=== PATIENT | female | born 1950 | race Caucasian/White ===

== ENCOUNTER → 2017-11-11 12:06 | Outpatient (CLI) | payer MEDICARE, OTHER ==
[~2017-11-11 12:06] MED LIST: CARDURA4 MG PO; CYMBALTA30 MG; HYZAAR 100-25 T1 TAB PO; MEPERIDINE HCL50 MG PO; MOBIC7.5 MG PO; PRAVACHOL40 MG PO
[2018-01-12 06:45] VITALS: BMI 34.4
== END | disposition home or self-care (01) ==
LOC: D.MRI 12:06
DX: M05.711 Rheumatoid arthritis with rheumatoid factor of right shoulder without organ or systems involvement (principal)

== ENCOUNTER 2018-01-12 06:30 | Day surgery (SDC) | payer MEDICARE, OTHER ==
[2018-01-11 09:51] LABS: HEMATOCRIT 37.3 % (36.0-48.0); HEMOGLOBIN 12.6 g/dL (12-16); MCH 30.6 pg (26.0-34.0); MCHC 33.8 g/dL (31.0-37.0); MCV 90.5 fL (80.0-100.0); MEAN PLATELET VOLUME 8.9 fL (7.4-10.4); RBC 4.12 10x6/uL (4.00-5.40); RDW 13.2 % (11.5-14.5); WBC 5.8 10x3/uL (4.8-10.8)
[~2018-01-12] VITALS: Ht 162.6 cm; Wt 90.7 kg
--- NOTE | ~2018-01-12 | OP ---
PATIENT NAME: POOJA ARRIAZA MEDICAL RECORD: [id number] :46 LOCATION:D.OPS ADMISSION DATE: SURGEON: TED CORDOVA, ORQUIDEA REEVES DATE OF OPERATION: 01/12/2018 PREOPERATIVE DIAGNOSES: 1. Impingement syndrome of the right shoulder. 2. Rotator cuff tear of the right shoulder. POSTOPERATIVE DIAGNOSES: 1. Impingement syndrome of the right shoulder. 2. Rotator cuff tear of the right shoulder. PROCEDURES: 1. Arthroscopic rotator cuff repair of the right shoulder. 2. Arthroscopic distal clavicle excision done through separate incision - 1 cm. 3. Arthroscopic subacromial decompression, acromioplasty and bursectomy. SURGEON: Orquidea Jean MD ANESTHESIA: General. INTRAOPERATIVE COMPLICATIONS: None. SUMMARY OF PATHOLOGIC FINDINGS: Consistent with the patient's MRI, she had severe impingement with lateral attritional change of the rotator cuff where it became full thickness and very thin. IMPLANTS USED: Arthrex 4.75 SwiveLock. OPERATIVE SUMMARY IN DETAIL: After obtaining the appropriate preoperative orthopedic surgery consent as well as anesthetic consultation, evaluation and clearance, the patient was brought to the operating room and placed on the operating table in supine position. After general laryngeal mask airway was administered, the patient was placed in the left lateral decubitus position. All pressure points were well padded to include down leg peroneal pad as well as axillary roll. The patient was held firmly to the operating table using vacuum pack suction system. Right upper extremity and shoulder were then prepped and draped in routine sterile fashion. The arm was held in the Arthrex traction boom at 30 degrees of forward flexion, 30 degrees of abduction with 10 pounds of traction laterally. Arthroscopy was established in the glenohumeral joint from the posterior portal. Anterior portal was established in the anterior safe interval. Diagnostic arthroscopy did reveal the patient had some mild glenohumeral arthritis, one small area centrally was grade IV on the glenoid, however, the humeral head itself was in relatively good condition. No labral tearing was seen. Intra-articular inflammation was noted and at the anterior lateral aspect of the rotator cuff, a full-thickness rotator cuff tear was known. Attention was then turned to the subacromial space. While in subacromial space, accessory lateral portal was created through which an Dixon tissue ablation system was used to denude the undersurface of the acromion of all soft tissue elements and released coracoacromial ligament. A 5.0 barrel bur was then used to perform acromioplasty at the level of acromioclavicular joint. Having completed this, attention was turned to the distal clavicle. Under direct arthroscopic visualization, the distal clavicle OPERATIVE REPORT [id number] POOJA ARRIAZA was taken down with a 5.0 barrel bur for approximately 1 cm. Lastly, the rotator cuff was approached. The 5.0 resector was utilized to denude the bone and take it back to good bleeding footprint for rotator cuff reapproximation. FiberTape was then placed in inverted mattress fashion. It was anchored laterally with a 4.75 SwiveLock from Arthrex. This resulted in good reapproximation and coverage of the greater tuberosity. Having completed this, arthroscopy portals were closed in routine interrupted fashion using 4-0 Prolene. Sterile dressings were applied. The patient was awakened and taken to recovery room in stable condition. All final needle and sponge counts were correct. TRANSINT:[id number] Voice Confirmation ID: [id number] DOCUMENT ID: [id number] TED CORDOVA, ORQUIDEA REEVES at 1119 CC: [id number] DICTATION DATE: 01/12/18899 LOADER: 01/12/18918 [facility] 01/12/[address] [address]
[~2018-01-12 06:30] MED LIST changes: -MEPERIDINE HCL50 MG PO
[2018-01-12 06:45] VITALS: BP 151/66; Ht 162.6 cm; Wt 90.7 kg
[2018-01-12] MEDS ORDERED: MEPERIDINE HCL50 MG PO (08:57)
== END 2018-01-12 11:11 | disposition home or self-care (01) ==
LOC: D.OPS 06:30 → D.PAN 08:30 → D.OPS 08:30
PROVIDERS: Anesthesiology
DX: M25.811 Other specified joint disorders, right shoulder (principal); S43.421A Sprain of right rotator cuff capsule, initial encounter; X58.XXXA Exposure to other specified factors, initial encounter

== ENCOUNTER → 2018-09-20 11:05 | Outpatient (CLI) | payer MEDICARE, OTHER ==
[~2018-09-20 11:05] MED LIST changes: -CYMBALTA30 MG; +CYMBALTA30 MG PO; +HYDROCODON-ACE1 EA10 PO; -HYZAAR 100-25 T1 TAB PO; +HYZAAR PO; +MEPERIDINE HCL50 MG PO
== END | disposition home or self-care (01) ==
LOC: D.MRI 11:05
DX: M25.511 Pain in right shoulder (principal)

== ENCOUNTER 2018-09-28 08:00 | Day surgery (SDC) | payer MEDICARE, OTHER ==
[2018-09-26 13:28] LABS: HEMATOCRIT 38.6 % (36.0-48.0); HEMOGLOBIN 13.4 g/dL (12-16); MCH 30.5 pg (26.0-34.0); MCHC 34.7 g/dL (31.0-37.0); MCV 87.9 fL (80.0-100.0); MEAN PLATELET VOLUME 8.8 fL (7.4-10.4); RBC 4.39 10x6/uL (4.00-5.40); RDW 12.9 % (11.5-14.5); WBC 6.6 10x3/uL (4.8-10.8)
[~2018-09-28] VITALS: Ht 162.6 cm; Wt 90.7 kg
[~2018-09-28 08:00] MED LIST changes: -HYDROCODON-ACE1 EA10 PO
[2018-09-28 09:03] VITALS: BP 123/76; Ht 162.6 cm; Wt 90.7 kg
[2018-09-28] MEDS ORDERED: HYDROCODON-ACE1 EA10 PO (11:32)
--- NOTE | 2018-10-04 12:10 | OP ---
PATIENT NAME: POOJA ARRIAZA MEDICAL RECORD: [id number] :46 LOCATION:[facility] ADMISSION DATE: SURGEON: ORQUIDEA JEAN MD DATE OF OPERATION: 09/28/2018 PREOPERATIVE DIAGNOSES: Possible rotator cuff repair, severe biceps tendinitis. POSTOPERATIVE DIAGNOSES: Severe biceps tendinitis of the right shoulder with multiple loose bodies in the shoulder. 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 INDICATIONS: This is a 68-year-old female, who previously had an arthroscopic rotator cuff repair. Some mild chondromalacia was noted at the time of her rotator cuff repair. She continued to have problems, mostly biceps tendinitis. Plan was for biceps tenodesis and possible revision rotator cuff repair. The rotator cuff was in excellent overall condition both from the intraarticular aspect and the subacromial space. However, she was noted to have multiple chondral fragments with chondral flaking in the glenohumeral joint and again the biceps tendonitis was extremely thick and red consistent with continued tendinopathy. OPERATIVE SUMMARY IN DETAIL: After obtaining the appropriate preoperative orthopedic surgery consent as well as anesthetic consultation, evaluation and clearance, the patient was brought to the operating room and placed on the operating table in supine position. After general laryngeal mask airway was administered, the patient was placed in a left lateral decubitus position. All pressure points were well padded. She was held firmly to the operating table using vacuum pack suction system. Right upper extremity and shoulder were then prepped and draped in routine sterile fashion. The arm was held in the Arthrex traction boom at 30 degrees of forward flexion, 30 degrees of abduction, 10 pounds of traction laterally. Arthroscopy was established in the glenohumeral joint for posterior portal. Anterior portal was established in the anterior safe interval. Diagnostic arthroscopy showed the multiple chondral fragments as well as the severe biceps tendinitis. Multiple chondral fragments were taken down with both the resector as well as grab and remove. There were fragments in the posterior recess. There were fragments in the inferior recess as well as free fragments floating in the entire joint. All free floating fragments were removed. Spring tissue ablation system was utilized to create a biceps tenotomy at the bicipital labral junction. Further diagnostic arthroscopy revealed the chondral lesions as described. Gentle chondroplasty was done to try and prevent further loss of loose chondral fragments. Having taken all this down, attention was turned to the subacromial space. In the subacromial space, the rotator cuff repair was pristine. There was no further impingement. No further chondromalacia of the AC joint. Having completed this, arthroscopy portals were closed in routine interrupted fashion using 4-0 Prolene. Sterile dressings were applied. The patient was awakened and taken to recovery room in stable condition. All final needle and sponge counts were correct. TRANSINT:[id number] Voice Confirmation ID: [id number] DOCUMENT ID: [id number] OPERATIVE REPORT [id number] SOFIYA,POOJA JEAN MD, ORQUIDEA REEVES at 1210 CC: [id number] DICTATION DATE: 09/30/18 0932 FINANCE INTERN: 09/30/18 1041 [facility] 09/28/18 [id number] [place] [address]
== END 2018-09-28 13:28 | disposition home or self-care (01) ==
LOC: D.OPS 08:00 → D.PAN 10:00 → D.OPS 11:15 → D.PAN 11:15 → D.OPS 12:50 → D.PAN 12:50 → D.OPS 13:28
PROVIDERS: Anesthesiology; ATTEND Orthopaedic Surgery
DX: M75.21 Bicipital tendinitis, right shoulder (principal)